=== PATIENT | female | born 1990 | race Two or more races ===

== ENCOUNTER → 2024-07-24 | Outpatient (CLI) | payer MEDICAID, SELFPAY ==
--- NOTE | 2024-07-24 13:00 | ECHO_ITS ---
Transthoracic Echo Report Ht (in): 66 Wt (lb): 184 Exam Location: Echo Lab Status: Outpatient Qual Field Manager: Rosa Isela Carey Indications: Procedure Performed: BP: / HR: Rhythm: Sinus Technical Quality: Fair MEASUREMENTS (Male / Female) Normal Values 2D ECHO LV Diastolic Diameter PLAX 4.7 cm 4.2 - 5.9 / 3.9 - 5.3 cm LV Systolic Diameter PLAX 3.3 cm IVS Diastolic Thickness 0.9 cm 0.6 - 1.0 / 0.6 - 0.9 cm LVPW Diastolic Thickness 0.9 cm 0.6 - 1.0 / 0.6 - 0.9 cm LV Relative Wall Thickness 0.4 LVOT Diameter 1.9 cm LA Volume Index 20.6 cm?/m? 16 - 28 cm?/m? Ascending Aorta Diameter 2.9 cm M-MODE Aortic Root Diameter MM 2.9 cm LA Systolic Diameter MM 3.3 cm LA Ao Ratio MM 1.1 AV Cusp Separation MM 2.0 cm DOPPLER AV Peak Velocity 112.0 cm/s AV Peak Gradient 5.0 mmHg AV Mean Gradient 3.0 mmHg AV Velocity Time Integral 23.9 cm LVOT Peak Velocity 87.9 cm/s LVOT Peak Gradient 3.1 mmHg LVOT Velocity Time Integral 19.4 cm AV Area Cont Eq vti 2.3 cm? AV Area Cont Eq pk 2.2 cm? MV Peak Velocity 70.3 cm/s MV Peak Gradient 2.0 mmHg MV Mean Velocity 46.5 cm/s MV Mean Gradient 1.0 mmHg MV Area PHT 4.3 cm? Mitral E Point Velocity 53.8 cm/s Mitral A Point Velocity 77.1 cm/s Mitral E to A Ratio 0.7 LV E' Lateral Velocity 9.0 cm/s Mitral E to LV E' Lateral Ratio 6.0 LV E' Septal Velocity 6.6 cm/s Mitral E to LV E' Septal Ratio 8.1 TR Peak Velocity 210.7 cm/s TR Peak Gradient 17.8 mmHg FINDINGS Left Ventricle Normal left ventricular size, wall thickness, systolic function with no obvious regional wall motion abnormalities. The ejection fraction is visually estimated at 55-60%. Right Ventricle The right ventricle is mildly dilated. Normal systolic function. The estimated right ventricular sys tolic pressure, 37mmHg. RAP 10. Left Atrium The left atrium is normal by two-dimensional, color flow and Doppler imaging with no structural abnormalities, no thrombus formation present. Right Atrium The right atrium is normal by two-dimensional imaging, color flow and Doppler imaging with no struct ural abnormalities, no thrombus formation present. Atrial Septum The interatrial septum appears normal with no evidence of a shunt. Aorta The aorta is normal by two-dimensional, color flow and Doppler interrogation. Mitral Valve The mitral valve is normal by two-dimensional, color flow and Doppler interrogation. There is trace mitral valve regurgitation. Aortic Valve The aortic valve is trileaflet and normal by two-dimensional, color flow and Doppler interrogation. There is no significant aortic valve regurgitation. Tricuspid Valve The tricuspid valve is normal by two-dimensional, color flow and Doppler interrogation. There is mil d tricuspid valve regurgitation. Pulmonic Valve There is trace pulmonic valve regurgitation. Vessels The pulmonary artery appears normal. The inferior vena cava pulmonary and hepatic veins appear sajan l. Pericardium The pericardium is normal by two-dimensional imaging. There is no significant pericardial effusion. CONCLUSIONS Indication: Malignant neoplasm upper inner quadrant female breast. Normal LV size and function. Stage I diastolic dysfunction. Estimated EF 55-60% Mild RV dilatation. Normal RV function. Estimated RVSP 37mmHg. Trace MR,PI. Mild TR Eddie Sauceda (Electronically Signed) Final Date: 24 July 2024 21:41
== END | disposition home or self-care (01) ==
PROVIDERS: PCP Internal Medicine Hematology & Oncology; Referring Provider Internal Medicine Hematology & Oncology; Visit Provider Internal Medicine Hematology & Oncology
DX: I08.1 Rheumatic disorders of both mitral and tricuspid valves (principal); C50.212 Malignant neoplasm of upper-inner quadrant of left female breast
CPT/HCPCS: 93306

== ENCOUNTER → 2024-08-01 | Outpatient (CLI) | payer MEDICAID, SELFPAY ==
[2024-08-01 08:34] LABS: HCG Qualitative,Urine Negative
--- NOTE | 2024-08-01 12:30 | XR_ITS ---
Examination: Bone scan whole body, radioisotope Date and time of exam: August 01, 2024 1251 hours INDICATIONS: Diagnosis left breast cancer initiation chemotherapy July 25, 2024, onset right-sided shoulder pain this month, staging Technique: Study has been performed with intravenous administration of 24.4 mci 99M technetium MDP. Anterior, posterior whole body images are obtained. Images have been obtained including the lower extremities. Findings: Increased isotope accumulation left shoulder Mildly heterogeneous lumbar and thoracic spine uptake, increased uptake bilateral sacrum IMPRESSION: Positive bone scan but nonspecific Recommend plain films lumbar thoracic spine, left shoulder, sacral series follow-up
== END | disposition home or self-care (01) ==
PROVIDERS: PCP Family Medicine; Referring Provider Internal Medicine Hematology & Oncology; Visit Provider Internal Medicine Hematology & Oncology
DX: R93.7 Abnormal findings on diagnostic imaging of other parts of musculoskeletal system (principal); C50.212 Malignant neoplasm of upper-inner quadrant of left female breast
CPT/HCPCS: 78306; 81025; A9503

== ENCOUNTER → 2024-08-15 | Outpatient (CLI) | payer MEDICAID, SELFPAY ==
--- NOTE | 2024-08-15 13:50 | XR_ITS ---
Examination: Shoulder,left, 3 views Technique: Shoulder AP internal rotation, AP external rotation, Y view shoulder, 3 views Exam date and time :August 11, 2024 1406 hours INDICATIONS: Recent diagnosis breast cancer with positive bone scan including in the left shoulder FINDINGS: Mild osteopenia No fracture or dislocation No findings diagnostic for osseous metastatic disease IMPRESSION: No findings diagnostic for osseous metastatic disease
--- NOTE | 2024-08-15 13:50 | XR_ITS ---
Examination: Sacrum and coccyx 3 views TECHNIQUE: AP inclined AP lateral sacrum and coccyx 3 views Exam date and time: August 15, 2024 1425 hours INDICATIONS: Diagnosis breast cancer July 2024, positive bone scan in the sacral region August 01, 2024 FINDINGS: Intact sacral and coccygeal segments IMPRESSION: No findings diagnostic for osseous metastatic disease
--- NOTE | 2024-08-15 13:50 | XR_ITS ---
Examination: Thoracic spine 3 views Technique one AP lateral coned lateral upper dorsal spine 3 views Exam date and time: August 15, 2024 1413 hours INDICATIONS: Back pain this week, diagnosis breast cancer December 2023 FINDINGS: Adequate alignment thoracic vertebral bodies No thoracic fracture No cortical bone destruction IMPRESSION: No cortical bone destruction If pain persists, consider MRI thoracic spine follow-up pre and postcontrast
--- NOTE | 2024-08-15 13:50 | XR_ITS ---
Examination: Lumbar spine, 5 views Technique: Lumbar spine AP, lateral, coned lateral lower lumbar spine, bilateral obliques 5 views Exam date and time: August 15, 2024 1406 hours INDICATIONS: Diagnosis breast cancer July 2024 with positive bone scan in the lumbar and thoracic spine August 01, 2024 FINDINGS: Mild osteopenia No lumbar fracture No cortical bone destruction IMPRESSION: No findings diagnostic for osseous metastatic disease If symptoms persist, consider MRI lumbar spine pre and post contrast follow-up
== END | disposition home or self-care (01) ==
PROVIDERS: Referring Provider Internal Medicine Hematology & Oncology; Visit Provider Internal Medicine Hematology & Oncology
DX: R93.7 Abnormal findings on diagnostic imaging of other parts of musculoskeletal system (principal); M54.6 Pain in thoracic spine; C50.212 Malignant neoplasm of upper-inner quadrant of left female breast
CPT/HCPCS: 72072; 72110; 72220; 73030